=== PATIENT | female | born 1975 | race African-American/Black ===

== ENCOUNTER 2021-01-23 11:30 | Inpatient (IN) | payer BC ==
[~2021-01-23] VITALS: Ht 162.6 cm; Wt 79.8 kg
--- NOTE | 2021-01-23 11:55 | NUR ---
Pt admitted to medical unit rm 318 from [facility] via EMS. Pt A&O x 4, denies pain at this time, c/o of slight shortness of breath.
[2021-01-23 12:04] VITALS: BP 129/61; PULSE 110; TEMP 98.2
[2021-01-23] MEDS ORDERED: NORVASC 10MG10 MG PO (12:54)
[2021-01-23] MEDS ORDERED: FERROUS SU325 MG/TAB PO (12:55)
[2021-01-23] MEDS ORDERED: COLACE 100100 MG/CAP PO (12:55)
[2021-01-23] MEDS ORDERED: TOPROL XL 25MG25 MG PO (12:56)
[2021-01-23] MEDS ORDERED: LEXAPRO 10MG10 MG PO (12:56)
[2021-01-23] MEDS ORDERED: KLOR-CON SPRIN10 MEQ PO (12:57)
[2021-01-23] MEDS ORDERED: SYNTHROID0.088 MG/T PO (12:57)
[2021-01-23] MEDS ORDERED: XANAX .25M0.25 MG/TA PO (12:58)
[2021-01-23 14:19] LABS: HEMATOCRIT 33.7 % (37.0-47.0); HEMOGLOBIN 10.3 g/dl (12.5-16.0); MEAN CELL VOLUME 85 fl (80.0-100.0); MEAN CORPUSCULAR HEMOGLOBIN 26 pg (27.0-31.0); MEAN CORPUSCULAR HGB CONC 31 g/dl (33.0-37.0); PLATELET COUNT 52 K/mm3 (130-400); RED BLOOD COUNT 3.95 M/mm3 (4.10-5.30)
[2021-01-23 14:31] LABS: ALBUMIN 2.8 gm/dL (3.5-5.0); BILIRUBIN,TOTAL 0.4 mg/dL (0.0-1.0); CALCIUM 8.3 mg/dL (8.4-10.2); CREATININE, serum 2.58 (0.52-1.25); POTASSIUM 5.5 mmol/L (3.4-5.0); TOTAL PROTEIN 6.8 gm/dL (6.4-8.2)
[2021-01-23] MEDS ORDERED: LASIX 40MG40 MG/4 ML PO (15:43)
[2021-01-23 15:52] LABS: LACTATE DEHYDROGENASE 565 U/L (313-618); LIPASE 398 U/L (23-300)
[2021-01-23 16:26] LABS: INR 1.4 (0.8-3.0); PROTHROMBIN TIME 15.4 SECONDS (9.7-12.8)
[2021-01-23 16:29] LABS: PARTIAL THROMBOPLASTIN TIME 38.8 SECONDS (26.0-37.0)
[2021-01-23 16:48] VITALS: BP 119/64; PULSE 110; TEMP 98.3
[2021-01-23 16:50] LABS: BAND 10 % (0-10); LYMPHOCYTE 28 % (20.0-51.0); NEUTROPHILS 56 % (42.0-75.2)
[2021-01-23 19:46] VITALS: BP 126/68; PULSE 113; TEMP 98.2
[2021-01-23 23:42] VITALS: BP 132/67; PULSE 94; TEMP 97.9
[2021-01-24 03:58] VITALS: BP 142/73; PULSE 113; TEMP 98.1
--- NOTE | 2021-01-24 05:17 | NUR ---
NO NEW ISSUES NOTED OR REPORTED BY PATIENT THROUGHOUT THE NIGHT.
--- NOTE | 2021-01-24 06:45 | NUR ---
PT LAYING IN BED WITH LAB AT BEDSIDE. PT IS ANXIOUS ABOUT ALL THE TESTS ORDERED FOR TODAY, SHE SEEMS UNSURE REGARDING THE PURPOSE. WILL DISCUSS WITH THE DOCTORS. NO FURTHER CONCERNS AT THIS TIME.
[2021-01-24 07:15] LABS: MEAN CELL VOLUME 84 fl (80.0-100.0); MEAN CORPUSCULAR HGB CONC 31 g/dl (33.0-37.0); PLATELET COUNT 56 K/mm3 (130-400); RED BLOOD COUNT 3.56 M/mm3 (4.10-5.30); REDCELL DISTRIBUTION WIDTH-CV 16.7 % (11.5-14.5)
[2021-01-24 07:24] LABS: HEMOGLOBIN 9.4 g/dl (12.5-16.0); MEAN CORPUSCULAR HEMOGLOBIN 26 pg (27.0-31.0)
[2021-01-24 07:28] LABS: ALBUMIN 2.7 gm/dL (3.5-5.0); BILIRUBIN,TOTAL 0.3 mg/dL (0.0-1.0); CALCIUM 8.4 mg/dL (8.4-10.2); CREATININE, serum 2.83 (0.52-1.25); POTASSIUM 5.3 mmol/L (3.4-5.0); TOTAL PROTEIN 6.4 gm/dL (6.4-8.2)
[2021-01-24 08:09] VITALS: BP 133/68; PULSE 118; TEMP 98.7
[2021-01-24 08:27] LABS: ANISOCYTOSIS 1+; BAND 10 % (0-10); HYPOCHROMIA 1+; LYMPHOCYTE 28 % (20.0-51.0); NEUTROPHILS 58 % (42.0-75.2); PLATELET ESTIMATE DECREASED (NORMAL); TEAR DROP CELLS 1+
--- NOTE | 2021-01-24 16:03 | NUR ---
FIGUEROA met with the patient, her mother (Carie), and sister (Kellee Ríos, ph#[phone]), to discuss discharge plan. The patient lives in [place] with her two daughters: Sagar and Yulissa. They are twenty-one and [id number]. She reports independence with ADLs and does not have any DME. The patient's PCP is Dr. Jose Juárez and she receives her medications from the [facility] in . She reports no difficulties obtaining her meds. The patient does not have a DPOA-HC, but she was interested in obtaining a form. SW provided. The patient is not and she has two children: Sagar and Yulissa. The patient was having an EKG during this time. FIGUEROA informed the patient's mother and sister that the patient's legal next of kin is her children. They both verbalized understanding. The patient's mother reports that the plan is for the patient to return home upon discharge. SW to follow as needed. *Discharge plan: home with daughters and family support*
[2021-01-24 16:32] VITALS: BP 115/78; PULSE 114; TEMP 98.5
--- NOTE | 2021-01-24 19:17 | NUR ---
Patient has had a very eventful day. During the day she had a bone marrow biospy in the bilateral hips, lymph nnode biospy in the left axilla, abdominal MRI, EKG, and a CXR. The patient handled everything well and has minimal c/o pain r/t the bone marrow biopsy. This patient has had very little urinary output throughout the day, with only 110mL out during the entire shift. Bedside report has been completed by this student nurse with Beatrice Wood RN.
[2021-01-24 19:32] VITALS: BP 127/70; PULSE 115; TEMP 98.3
[2021-01-24 21:58] LABS: BUDDING YEAST Present /hpf; MUCOUS Present /lpf; PH 5 (5-8); URINE APPEARANCE Cloudy; URINE BACTERIA Rare /hpf; URINE BILIRUBIN Negative (NEGATIVE); URINE BLOOD Negative (NEGATIVE); URINE COLOR Amber; URINE GLUCOSE Negative (NEGATIVE); URINE KETONE Trace (NEGATIVE); URINE LEUKOCYTE ESTERASE 2+ (NEGATIVE); URINE NITRATE Negative (NEGATIVE); URINE PROTEIN(semi-quant) 2+ (NEGATIVE); URINE UROBILINOGEN Negative (NEGATIVE)
[2021-01-24 22:11] LABS: COLLECTION METHOD CLEAN CATCH
[2021-01-24 23:51] VITALS: BP 121/70; PULSE 113; TEMP 98.1
--- NOTE | 2021-01-25 03:42 | NUR ---
Patient reporting generalized pain that is not being relieved by Tylenol 500mg. Aisha Han APRN notified. see new orders.
[2021-01-25 04:36] VITALS: BP 128/81; PULSE 110; TEMP 98.4
--- NOTE | 2021-01-25 06:11 | NUR ---
PATIENT HAS RESTED WELL SINCE RECEIVING THE 0.25MG DILAUDID. NO NEW ISSUES NOTED OR REPORTED BY PATIENT OTHER THAN THE PAIN.
--- NOTE | 2021-01-25 07:10 | NUR ---
Bedside shift report has been completed. While in patient's room, lab was preparing to draw blood. Bumex drip was checked. Patient recieved dilaudid overnight for pain as reported by jackie HANNAH. Patient does not have any complaints at this time.
[2021-01-25 07:14] LABS: MEAN CELL VOLUME 85 fl (80.0-100.0); MEAN CORPUSCULAR HGB CONC 31 g/dl (33.0-37.0); RED BLOOD COUNT 3.43 M/mm3 (4.10-5.30); REDCELL DISTRIBUTION WIDTH-CV 17.1 % (11.5-14.5)
[2021-01-25 07:15] LABS: HEMATOCRIT 29.1 % (37.0-47.0); HEMOGLOBIN 9.1 g/dl (12.5-16.0); MEAN CORPUSCULAR HEMOGLOBIN 27 pg (27.0-31.0)
[2021-01-25 07:17] LABS: PLATELET COUNT 39 K/mm3 (130-400)
[2021-01-25 07:43] LABS: BAND 2 % (0-10); EOSINOPHIL 3 % (0-4); LYMPHOCYTE 33 % (20.0-51.0); MYELOCYTE 4 % (0-0); NEUTROPHILS 41 % (42.0-75.2); NUCLEATED RED BLOOD CELL 3 (0-6)
[2021-01-25 07:44] LABS: ANISOCYTOSIS 2+; HYPOCHROMIA 4+; PLATELET ESTIMATE DECREASED (NORMAL)
[2021-01-25 08:21] VITALS: BP 132/70; PULSE 113; TEMP 98.3
[2021-01-25 09:42] LABS: ALBUMIN 2.8 gm/dL (3.5-5.0); BILIRUBIN,TOTAL 0.3 mg/dL (0.0-1.0); C-REACTIVE PROTEIN 7.6 mg/dL (0.0-0.9); CALCIUM 8.3 mg/dL (8.4-10.2); CREATININE, serum 3.04 (0.52-1.25); POTASSIUM 5.1 mmol/L (3.4-5.0); TOTAL PROTEIN 6.6 gm/dL (6.4-8.2)
[2021-01-25 12:39] VITALS: BP 139/74; PULSE 118; TEMP 98.2
--- NOTE | 2021-01-25 12:54 | NUR ---
Inititial visit; Patient thanked [employer] [employer]ist for looking in on her and keeping her in [employer] [employer]'s prayers.
[2021-01-25 14:27] LABS: PLEURAL FLUID RBC 1000 /mm3 (0-0); PLEURAL FLUID WBC 307 /mm3
[2021-01-25 14:33] LABS: PLEURAL FLUID APPEARANCE HAZY; PLEURAL FLUID COLOR YELLOW
[2021-01-25 14:42] LABS: GLUCOSE,PLEURAL FLUID 104 mg/dL
[2021-01-25 15:13] LABS: IMMUNOGLOBULIN A 198 mg/dL (65-421); IMMUNOGLOBULIN G 1635 mg/dL (552-1631); IMMUNOGLOBULIN M, QUANTITATIVE 104 mg/dL (33-293)
[2021-01-25 15:28] VITALS: BP 133/75; PULSE 115; TEMP 98.5
[2021-01-25 15:30] LABS: HEPATITIS A ANTIBODY-IGM Negative (Negative); HEPATITIS B CORE AB,TOTAL Negative (()); HEPATITIS B SURFACE ANTIBODY <2.0 (()); HEPATITIS B SURFACE ANTIGEN Negative (Negative); HEPATITIS C VIRUS ANTIBODY Negative (Negative)
--- NOTE | 2021-01-25 19:12 | NUR ---
REPORT GIVEN TO CAMDEN ALLEN.
[2021-01-25 20:23] VITALS: BP 132/87; PULSE 115; TEMP 98.7
[2021-01-26] VITALS (7 sets, daily range): BP systolic 119–146; BP diastolic 59–79; PULSE 98–115; TEMP 98–98.9
--- NOTE | 2021-01-26 05:55 | NUR ---
EUGENIO RAMSAYSIN ORDERED BY PEDRO NASH, DUE TO PATIENT COUGHING. NO OTHER ISSUES NOTED OR REPORTED BY PATIENT THROUGHOUT THE SHIFT.
[2021-01-26 08:13] LABS: MEAN CELL VOLUME 85 fl (80.0-100.0); MEAN CORPUSCULAR HGB CONC 31 g/dl (33.0-37.0); RED BLOOD COUNT 3.12 M/mm3 (4.10-5.30); REDCELL DISTRIBUTION WIDTH-CV 16.9 % (11.5-14.5)
[2021-01-26 08:21] LABS: ALBUMIN 2.8 gm/dL (3.5-5.0); BILIRUBIN,TOTAL 0.3 mg/dL (0.0-1.0); CALCIUM 8.2 mg/dL (8.4-10.2); CREATININE, serum 2.37 (0.52-1.25); POTASSIUM 4.3 mmol/L (3.4-5.0); TOTAL PROTEIN 6.5 gm/dL (6.4-8.2)
[2021-01-26 09:09] LABS: HEMATOCRIT 26.5 % (37.0-47.0); HEMOGLOBIN 8.3 g/dl (12.5-16.0); MEAN CORPUSCULAR HEMOGLOBIN 27 pg (27.0-31.0)
[2021-01-26 09:10] LABS: PLATELET COUNT 41 K/mm3 (130-400)
[2021-01-26 09:17] LABS: ANISOCYTOSIS 1+; METAMYELOCYTE 1 % (0-0); NUCLEATED RED BLOOD CELL 2 (0-6); PLATELET ESTIMATE DECREASED (NORMAL)
--- NOTE | 2021-01-26 09:19 | NUR ---
NOTIFIED OF CRITICAL LOW PLATELET COUNT OF 41 - NOTIFIED HOSPITALIST, NO NEW ORDERS
[2021-01-26 09:20] LABS: HYPOCHROMIA 2+
[2021-01-26 09:22] LABS: BAND 3 % (0-10); EOSINOPHIL 1 % (0-4)
[2021-01-26 09:25] LABS: NEUTROPHILS 48 % (42.0-75.2)
[2021-01-26 09:26] LABS: LYMPHOCYTE 37 % (20.0-51.0)
--- NOTE | 2021-01-26 19:15 | NUR ---
PATIENT HAD UNEVENTFUL DAY WITH MOTHER AND SISTER VISITING FOR SEVERAL HOURS IN THE AFTERNOON. PATIENT REQUIRED DOSE OF ROBITUSSIN IN MORNING AND ONE HYDROCODONE IN AFTERNOON. NO OTHER CARES OR CONCERNS VOICED.
[2021-01-27 03:51] VITALS: BP 137/79; PULSE 96; TEMP 98.8
[2021-01-27 08:35] VITALS: BP 131/78; PULSE 105; TEMP 98.7
[2021-01-27 10:30] LABS: MEAN CELL VOLUME 85 fl (80.0-100.0); MEAN CORPUSCULAR HGB CONC 32 g/dl (33.0-37.0); RED BLOOD COUNT 3.24 M/mm3 (4.10-5.30); REDCELL DISTRIBUTION WIDTH-CV 16.9 % (11.5-14.5)
[2021-01-27 10:33] LABS: HEMATOCRIT 27.6 % (37.0-47.0); HEMOGLOBIN 8.7 g/dl (12.5-16.0); MEAN CORPUSCULAR HEMOGLOBIN 27 pg (27.0-31.0)
[2021-01-27 10:34] LABS: PLATELET COUNT 40 K/mm3 (130-400)
[2021-01-27 10:37] LABS: CALCIUM 8.1 mg/dL (8.4-10.2); CREATININE, serum 1.74 (0.52-1.25); POTASSIUM 3.6 mmol/L (3.4-5.0)
[2021-01-27 10:50] LABS: ALBUMIN 2.7 gm/dL (3.5-5.0); BILIRUBIN UNCONJUGATED 0.2 mg/dL (0.0-1.1); BILIRUBIN,DIRECT 0.1 mg/dL (0.0-0.4); BILIRUBIN,TOTAL 0.2 mg/dL (0.0-1.0); TOTAL PROTEIN 6.5 gm/dL (6.4-8.2)
[2021-01-27 11:20] LABS: BAND 11 % (0-10); EOSINOPHIL 1 % (0-4); LYMPHOCYTE 33 % (20.0-51.0); METAMYELOCYTE 3 % (0-0); NEUTROPHILS 41 % (42.0-75.2)
[2021-01-27 11:21] LABS: PLATELET ESTIMATE DECREASED (NORMAL)
[2021-01-27 11:32] VITALS: BP 117/62; PULSE 96; TEMP 98.9
[2021-01-27 11:44] LABS: ANISOCYTOSIS 1+; HYPOCHROMIA 2+
[2021-01-27 11:45] LABS: NUCLEATED RED BLOOD CELL 3 (0-6); OVALOCYTES 1+; TEAR DROP CELLS 1+
[2021-01-27 17:12] VITALS: BP 131/76; PULSE 107; TEMP 99.1
--- NOTE | 2021-01-27 18:24 | NUR ---
PATIENT HAD GOOD DAY WITH FEW CONCERNS; PATIENT IS ANXIOUS TO RETURN HOME SHE MISSES HER CHILDREN. ENCOURAGEMENT GIVEN. PATIENT CONTINUES TO EAT WELL WITH AND STATES SHE FEELS BETTER. NO OTHER CONCERNS NOTED THIS DAY.
[2021-01-27 19:07] VITALS: BP 139/62; PULSE 109; TEMP 99.8
--- NOTE | 2021-01-27 20:00 | NUR ---
Report received, assumed care for maintenance supervisor 2nd shift. Assessment complete. A&Ox3. Denies nausea/shortness of breath. Rating pain 5/10 on pain scale to back-described as constant ache-mes given per dr order. VS stable. IV to left hand with Bumex gtt@5ml/hr infusing without difficulty. Plan of care discussed for this shift to include HS meds/pain meds/calling for questions/concerns. Verbalizes understanding/denies needs. Call light in reach. Will monitor.
[2021-01-27 23:20] VITALS: BP 121/59; PULSE 96; TEMP 98.4
[2021-01-28 03:29] VITALS: BP 138/74; PULSE 101; TEMP 98.9
[2021-01-28 06:32] LABS: MEAN CELL VOLUME 85 fl (80.0-100.0); MEAN CORPUSCULAR HGB CONC 31 g/dl (33.0-37.0); RED BLOOD COUNT 2.82 M/mm3 (4.10-5.30); REDCELL DISTRIBUTION WIDTH-CV 16.7 % (11.5-14.5)
[2021-01-28 06:46] LABS: ALBUMIN 2.5 gm/dL (3.5-5.0); BILIRUBIN,TOTAL 0.2 mg/dL (0.0-1.0); CALCIUM 7.9 mg/dL (8.4-10.2); CREATININE, serum 1.56 (0.52-1.25); POTASSIUM 3.4 mmol/L (3.4-5.0)
[2021-01-28 06:50] LABS: HEMOGLOBIN 7.4 g/dl (12.5-16.0); MEAN CORPUSCULAR HEMOGLOBIN 26 pg (27.0-31.0); PLATELET COUNT 39 K/mm3 (130-400)
[2021-01-28 07:10] LABS: BAND 5 % (0-10); EOSINOPHIL 1 % (0-4); LYMPHOCYTE 36 % (20.0-51.0); METAMYELOCYTE 1 % (0-0); NEUTROPHILS 51 % (42.0-75.2); NUCLEATED RED BLOOD CELL 2 (0-6)
[2021-01-28 07:11] LABS: ANISOCYTOSIS 1+; HYPOCHROMIA 1+; OVALOCYTES 1+; PLATELET ESTIMATE DECREASED (NORMAL)
--- NOTE | 2021-01-28 07:36 | NUR ---
Patient was resting in bed upon entering the room. Patient does not have any complaints at this time.
[2021-01-28 10:17] VITALS: BP 122/67; PULSE 95; TEMP 97.9
[2021-01-28 11:03] LABS: MYCOPLASMA IGM ANTIBODIES Negative (Negative)
--- NOTE | 2021-01-28 11:46 | NUR ---
Mammography Supervisor attended clinical rounds with the team. Patient has walked 400 ft with PT and plans to return home upon discharge.
[2021-01-28 12:07] VITALS: BP 128/67; PULSE 100; TEMP 99.4
[2021-01-28 15:56] VITALS: BP 135/76; PULSE 108; TEMP 100.1
--- NOTE | 2021-01-28 18:56 | NUR ---
Patient has done well today. She did not have any complaints of pain, but was tearful because of missing family. Duggan was removed to check output.
--- NOTE | 2021-01-28 20:00 | NUR ---
Report received, assumed care for operation shift supervisor. Assessment complete. VS stable. A&Ox3. Denies pain/nausea/shortness of breath. States she is feeling a little better today but has been very emotional. Bumex@5mls/hr to left hand IV-infusing without difficulty. Voiding well since velázquez DCd. Robitussin given for cough per dr order. Denies questions/concerns. Call light in reach. Will monitor.
[2021-01-28 20:16] VITALS: BP 140/64; PULSE 105; TEMP 99.8
[2021-01-29] VITALS (7 sets, daily range): BP systolic 117–147; BP diastolic 58–86; PULSE 91–104; TEMP 97.8–99.1
--- NOTE | 2021-01-29 06:45 | NUR ---
PT IS ASLEEP AT THIS TIME. WILL RETURN TO ASSESS SHORTLY.
[2021-01-29 08:32] LABS: MEAN CELL VOLUME 86 fl (80.0-100.0); MEAN CORPUSCULAR HGB CONC 32 g/dl (33.0-37.0); RED BLOOD COUNT 3.17 M/mm3 (4.10-5.30); REDCELL DISTRIBUTION WIDTH-CV 16.8 % (11.5-14.5)
[2021-01-29 08:45] LABS: CALCIUM 8.4 mg/dL (8.4-10.2); CREATININE, serum 1.59 (0.52-1.25); POTASSIUM 3.2 mmol/L (3.4-5.0)
[2021-01-29 08:49] LABS: HEMOGLOBIN 8.6 g/dl (12.5-16.0); MEAN CORPUSCULAR HEMOGLOBIN 27 pg (27.0-31.0)
[2021-01-29 08:50] LABS: HEMATOCRIT 27.2 % (37.0-47.0)
[2021-01-29 08:51] LABS: PLATELET COUNT 40 K/mm3 (130-400)
[2021-01-29 09:07] LABS: BAND 3 % (0-10); LYMPHOCYTE 29 % (20.0-51.0); METAMYELOCYTE 1 % (0-0); MYELOCYTE 2 % (0-0); NEUTROPHILS 55 % (42.0-75.2)
[2021-01-29 09:08] LABS: ANISOCYTOSIS 1+; HYPOCHROMIA 2+; PLATELET ESTIMATE DECREASED (NORMAL); POLYCHROMASIA 1+
[2021-01-29 10:37] LABS: IMMUNO G SUBCLASS 1 1010.5 mg/dL (()); IMMUNO G SUBCLASS 2 362.7 mg/dL (()); IMMUNO G SUBCLASS 3 81.7 mg/dL (()); IMMUNO G SUBCLASS 4 53.6 mg/dL (3.9-86.4)
--- NOTE | 2021-01-29 13:13 | NUR ---
PT HAS HAD AN UNEVENTFUL DAY. DR. KHANNA CONTACTED THE PATIENT VIA RN'S PHONE, AND THE PATIENT WAS TOLD THAT THE PATHOLOGY REPORT WAS NEGATIVE FOR CANCER, THEY WOULD RUN A SECOND TEST FOR VERIFICATION, HOWEVER OUTLOOK IS POSITIVE. NO FURTHER CONCERNS AT THIS TIME.
--- NOTE | 2021-01-29 19:04 | NUR ---
REPORT GIVEN TO CAMDEN ALLEN
[2021-01-30 03:16] VITALS: BP 126/70; PULSE 99; TEMP 99.1
--- NOTE | 2021-01-30 06:30 | NUR ---
PATIENT HAD UNEVENTFUL NIGHT. PT STATES SHE IS STILL URINATING JUST FINE. DENIES ANY PAIN.
[2021-01-30 07:04] LABS: CALCIUM 8.4 mg/dL (8.4-10.2); CREATININE, serum 1.66 (0.52-1.25); POTASSIUM 3.6 mmol/L (3.4-5.0)
[2021-01-30 07:18] LABS: MEAN CELL VOLUME 85 fl (80.0-100.0); MEAN CORPUSCULAR HGB CONC 31 g/dl (33.0-37.0); RED BLOOD COUNT 2.68 M/mm3 (4.10-5.30); REDCELL DISTRIBUTION WIDTH-CV 16.7 % (11.5-14.5)
[2021-01-30 07:26] LABS: HEMATOCRIT 22.9 % (37.0-47.0); HEMOGLOBIN 7.1 g/dl (12.5-16.0); MEAN CORPUSCULAR HEMOGLOBIN 26 pg (27.0-31.0)
[2021-01-30 07:31] LABS: PLATELET COUNT 39 K/mm3 (130-400)
[2021-01-30 07:51] VITALS: BP 132/75; PULSE 94; TEMP 98.2
[2021-01-30] MEDS ORDERED: MONODOX100 PO (09:30)
[2021-01-30] MEDS ORDERED: LOPRESSOR 225 MG/TAB PO (09:31)
[2021-01-30] MEDS ORDERED: ZYLOPRIM 300MG300 MG PO (09:32)
[2021-01-30 09:41] LABS: BAND 5 % (0-10); EOSINOPHIL 2 % (0-4); LYMPHOCYTE 33 % (20.0-51.0); METAMYELOCYTE 1 % (0-0); MYELOCYTE 1 % (0-0); NEUTROPHILS 48 % (42.0-75.2); NUCLEATED RED BLOOD CELL 4 (0-6); PLATELET ESTIMATE DECREASED (NORMAL)
[2021-01-30 09:42] LABS: ANISOCYTOSIS 1+; HYPOCHROMIA 2+
[2021-01-30 12:34] VITALS: BP 135/69; PULSE 93; TEMP 98
[2021-01-30] MEDS ORDERED: BUMEX2 MG PO (12:39)
--- NOTE | 2021-01-30 12:56 | NUR ---
Enterprise Solutions Architect attended clinical rounds with the team. Patient expressed that she is eager to return home with her family.
[2021-01-30 15:48] VITALS: BP 135/82; PULSE 95; TEMP 97.8
--- NOTE | 2021-01-30 17:42 | NUR ---
PT IS DISCHARGING, INFORMATION REGARDING DISCHARGE HAS BEEN GIVEN. PATIENT IS AWARE OF APPOINTMENTS, MEDICATIONS AND DIET INFORMATION THAT SHE IS NEEDING TO FOLLOW UP WITH. NO OTHER CONCERNS. IT WAS AN ABSOLUTE PLEASURE BEING THIS PATIENT'S NURSE. 07/07 WOULD DO AGAIN, BUT DON'T WANT HER TO COME BACK TO THE HOSPITAL.
[2021-01-30 18:46] LABS: COMPLEMENT-C3 109 mg/dL (83-193)
[2021-01-30 22:59] LABS: C-ANCA 18 U/mL (0-99)
== END 2021-01-30 17:46 | disposition home or self-care (01) | DRG 987 ==
LOC: MEDICAL 11:30 → SURG 14:40 → MEDICAL 15:16
PROVIDERS: Hospitalist; Internal Medicine Gastroenterology; Pathology Anatomic Pathology & Clinical Pathology; Physician Assistant; Psychiatry & Neurology Neurology; ADMIT Internal Medicine Nephrology
PROC: 07DR0ZX Extraction of Iliac Bone Marrow, Open Approach, Diagnostic (ICD-10-PCS; 2021-01-24)
PROC: 07DR3ZX Extraction of Iliac Bone Marrow, Percutaneous Approach, Diagnostic (ICD-10-PCS; 2021-01-24)
PROC: 07B63ZX Excision of Left Axillary Lymphatic, Percutaneous Approach, Diagnostic (ICD-10-PCS; principal; 2021-01-24 09:00)
PROC: 0W993ZZ Drainage of Right Pleural Cavity, Percutaneous Approach (ICD-10-PCS; 2021-01-25)
DX: N17.9 Acute kidney failure, unspecified (principal); J18.9 Pneumonia, unspecified organism; D61.818 Other pancytopenia; E87.1 Hypo-osmolality and hyponatremia; E87.2 Acidosis; I50.30 Unspecified diastolic (congestive) heart failure; J90 Pleural effusion, not elsewhere classified; D59.10 Autoimmune hemolytic anemia, unspecified; I11.0 Hypertensive heart disease with heart failure; E03.9 Hypothyroidism, unspecified; I07.1 Rheumatic tricuspid insufficiency; D25.9 Leiomyoma of uterus, unspecified; R59.0 Localized enlarged lymph nodes; R59.9 Enlarged lymph nodes, unspecified; E79.0 Hyperuricemia without signs of inflammatory arthritis and tophaceous disease; F41.9 Anxiety disorder, unspecified; E87.5 Hyperkalemia; E88.09 Other disorders of plasma-protein metabolism, not elsewhere classified; F32.9 Major depressive disorder, single episode, unspecified; D64.9 Anemia, unspecified; R30.0 Dysuria; R00.0 Tachycardia, unspecified
CPT/HCPCS: 99223; 99232-AI; 99233-AI; J1170; J1940; J2405; J2543; J2704; J3370; J7050

== ENCOUNTER 2021-02-03 23:46 | Inpatient (IN) | payer BC ==
[~2021-02-03] VITALS: Ht 162.6 cm; Wt 75.4 kg
[~2021-02-03 23:46] MED LIST: BUMEX2 MG PO; COLACE 100100 MG/CAP PO; FERROUS SU325 MG/TAB PO; KLOR-CON SPRIN10 MEQ PO; LASIX 40MG40 MG/4 ML PO; LEXAPRO 10MG10 MG PO; LOPRESSOR 225 MG/TAB PO; MONODOX100 PO; NORVASC 10MG10 MG PO; SYNTHROID0.088 MG/T PO; TOPROL XL 25MG25 MG PO; XANAX .25M0.25 MG/TA PO; ZYLOPRIM 300MG300 MG PO
--- NOTE | 2021-02-04 01:00 | NUR ---
Patient to medical room 318 via EMS at this time. Patient is alert and oriented and able to ambulate from stretcher to bed independtly with a steady gait. She is breathing RA and does not appear to have any issues breathing; respirations are even and unlabored. Patient has no complaints of pain. BLE edema is mildly present; moreso in the left leg with 1+ pitting. Patient's temperature is 99.8. Awaiting orders. Call light in reach.
[2021-02-04 01:15] VITALS: BP 127/54; PULSE 115; TEMP 99.8
[2021-02-04 02:42] VITALS: BP 144/66; PULSE 123; TEMP 100.2
--- NOTE | 2021-02-04 02:47 | NUR ---
Vancomycin Initial Dosing Pharmacy Note Ordering provider: Rose Mehta MD 45 YO F Indication/duration: PNA W/RECENT HOSPITALIZATION / 7 DAYS GOAL: 15-20 HX: NO PREVIOUS LEVELS BMI: 29.9 WT: 79.1 KG ADJBW: 64.46 KG OSH SCR REPORTED 2.61 ADJBW EST CRCL~ 28 ML/MIN T 1/2 ~25 H LAB VALUES REPORTED FROM OSH FOLLOWS TMAX: 102.4 WBC: 9.3 LA: WNL UA LARGE AMOUNTS OF BLOOD, 2-5 WBC, TNTC RBC, 1+ BACTERIA, LE (-) COVID-19 (-) MICRO-PENDING PT LOADED WITH 1.5 GM (~19 MG/KG). WILL START A MAINTENANCE REGIMEN OF 750MG Q24H. PT UNLIKLEY TO FOLLOW POPULATION BASED KINETICS, PT IS YOUNG AND HAS AN ELEVATED BMI. WILL FOLLOW RENAL FUNCTION, MICRO, AND THERAPY PLAN FOR NEED TO ADJUST THERAPY. THANK YOU FOR THIS DOSING CONSULT!
[2021-02-04 05:40] LABS: BILIRUBIN,TOTAL 0.4 mg/dL (0.0-1.0); CALCIUM 8.5 mg/dL (8.4-10.2); CREATININE, serum 2.48 (0.52-1.25); POTASSIUM 4.6 mmol/L (3.4-5.0); TOTAL PROTEIN 7.1 gm/dL (6.4-8.2)
--- NOTE | 2021-02-04 08:05 | NUR ---
PT IS LAYING IN BED AT THIS TIME. DENIES ANY PAIN, HOWEVER IS HAVING A DIFFICULT TIME BREATHING. CHEST XRAYS HAVE BEEN ORDERED. NO FURTHER CONCERNS AT THIS TIME.
[2021-02-04 08:32] LABS: MEAN CELL VOLUME 88 fl (80.0-100.0); MEAN CORPUSCULAR HGB CONC 30 g/dl (33.0-37.0); PLATELET COUNT 54 K/mm3 (130-400); RED BLOOD COUNT 2.26 M/mm3 (4.10-5.30); REDCELL DISTRIBUTION WIDTH-CV 18.8 % (11.5-14.5)
[2021-02-04 08:50] VITALS: BP 146/71; PULSE 59; TEMP 102
[2021-02-04 09:00] LABS: HEMATOCRIT 19.8 % (37.0-47.0); HEMOGLOBIN 5.9 g/dl (12.5-16.0); MEAN CORPUSCULAR HEMOGLOBIN 26 pg (27.0-31.0)
[2021-02-04 09:43] LABS: BAND 14 % (0-10); EOSINOPHIL 1 % (0-4); LYMPHOCYTE 11 % (20.0-51.0); MYELOCYTE 1 % (0-0); NEUTROPHILS 71 % (42.0-75.2); NUCLEATED RED BLOOD CELL 2 (0-6)
[2021-02-04 09:47] LABS: PLATELET ESTIMATE DECREASED (NORMAL)
[2021-02-04 09:49] LABS: ANISOCYTOSIS 2+
[2021-02-04 09:50] LABS: HYPOCHROMIA 2+
[2021-02-04 09:58] LABS: TEAR DROP CELLS 1+
[2021-02-04 11:41] VITALS: BP 139/67; PULSE 132; TEMP 102.6
[2021-02-04 16:12] LABS: ARTERIAL BLD GAS O2 SATURATION 89.9 % (92-100); ARTERIAL BLOOD GAS BASE EXCESS -5.7 (-2-2); ARTERIAL BLOOD GAS PCO2 33.4 mmHg (35-45); ARTERIAL BLOOD GAS PO2 61.2 mmHg (80-100); ARTERIAL BLOOD GAS pH 7.37 (7.35-7.45)
[2021-02-04 17:05] LABS: URIC ACID 8.5 mg/dL (2.5-6.2)
[2021-02-04 17:43] LABS: CREATININE, serum 2.54 (0.52-1.25)
[2021-02-04 17:56] LABS: FRACTIONAL EXCRETION OF NA+ 0.3 %
[2021-02-04 18:03] LABS: MUCOUS Present /lpf; PH 5 (5-8); SQUAMOUS EPITHELIAL 0-2 /hpf; URINE APPEARANCE Cloudy; URINE BACTERIA None Seen /hpf; URINE BILIRUBIN Negative (NEGATIVE); URINE BLOOD 3+ (NEGATIVE); URINE COLOR Yellow; URINE GLUCOSE Negative (NEGATIVE); URINE KETONE Negative (NEGATIVE); URINE LEUKOCYTE ESTERASE Negative (NEGATIVE); URINE NITRATE Negative (NEGATIVE); URINE PROTEIN(semi-quant) 2+ (NEGATIVE); URINE RBC >50 /hpf; URINE UROBILINOGEN Negative (NEGATIVE)
[2021-02-04 18:10] LABS: COLLECTION METHOD CLEAN CATCH
--- NOTE | 2021-02-04 19:18 | NUR ---
Pt had eventful day, pt began to feel short of breath, upon assessment patient's o2 was 79%. Contacted RT, Provider and turned o2 up to 6L. Pt's o2 still remained in the mid 80's. RT arrived, and increased o2 to 10L. Placed a different spo2 monitor on patient's earlobe to get accurate spo2, o2 finally alexa to 100% on 10L. This RN titrated o2 down to 4.5L with the accurate monitor. The pt is very axiety ridden d/t shortness of air, and the possible pending transfer to [facility]. Pt did calm down, and this RN sat patient up in bed to help oxygenation, pt's states that helped a lot, and plans to sleep that way tonight. There are no other concerns at this time. report given to CAMDEN Fuller.
[2021-02-04 19:23] VITALS: BP 127/67; PULSE 115; TEMP 99.6
--- NOTE | 2021-02-04 20:00 | NUR ---
Assessment complete. Patient has started to have chills and temperature is 99.6; Tylenol is administered at this time due to her SOA being increased when her temperature rises. She has no complaints of pain but does state she is anxious; her home dose of xanax is restarted by PEDRO Grant and is also administered at this time. Lung sounds are clear with diminished bases. Bilateral lower extremity edema is noted with 1+ pitting. Her face also appears puffy and flushed. She is currently wearing 4.5 liters hi-prema oxygen; respirations are not labored but are tachypneac. Right upper arm PICC flushes well and dressing is CDI. Call light in reach, will continue to monitor.
[2021-02-04 23:28] VITALS: BP 120/65; PULSE 105; TEMP 98.3
--- NOTE | 2021-02-05 | NUR ---
EMS IS HERE TO TRANSFER PT TO IN AT THIS TIME. PT HAS BEEN EDUCATED ON THE SITUATION AND TRANSFER PAPERWORK HAS BEEN COLLECTED AND FAXED. PT WEARING 5 LITERS HI-OMERO OXYGEN AND IS AFEBRILE AT THIS TIME.
== END 2021-02-05 | disposition short-term general hospital (02) | DRG 871 ==
LOC: MEDICAL 23:46
PROVIDERS: Hospitalist; Nurse Practitioner; Nurse Practitioner Family; Physician Assistant; ADMIT Student in an Organized Health Care Education/Training Program
PROC: 02HV33Z Insertion of Infusion Device into Superior Vena Cava, Percutaneous Approach (ICD-10-PCS; principal; 2021-02-04)
DX: A41.9 Sepsis, unspecified organism (principal); J18.9 Pneumonia, unspecified organism; I50.33 Acute on chronic diastolic (congestive) heart failure; N17.9 Acute kidney failure, unspecified; I11.0 Hypertensive heart disease with heart failure; D25.9 Leiomyoma of uterus, unspecified; D69.6 Thrombocytopenia, unspecified; D64.9 Anemia, unspecified; E03.9 Hypothyroidism, unspecified; E79.0 Hyperuricemia without signs of inflammatory arthritis and tophaceous disease; F32.9 Major depressive disorder, single episode, unspecified; F41.9 Anxiety disorder, unspecified; R00.0 Tachycardia, unspecified; R76.0 Raised antibody titer; R74.01 Elevation of levels of liver transaminase levels; R79.89 Other specified abnormal findings of blood chemistry
CPT/HCPCS: 99223-AI; C1751; J0692; J3370; J7050